=== PATIENT | female | born 1945 | race Caucasian/White ===

== ENCOUNTER → 2020-01-22 | Outpatient (CLI) | payer OTHER | END | disposition home or self-care (01) | LOC: SHCH 13:24 | PROVIDERS: ATTEND Internal Medicine Cardiovascular Disease | DX: R01.1 Cardiac murmur, unspecified (principal) | CPT/HCPCS: 93306 ==

== ENCOUNTER 2020-03-24 14:36 | Inpatient (IN) | payer OTHER ==
[~2020-03-24] VITALS: Ht 167.6 cm; Wt 84.8 kg
[2020-03-24 15:43] LABS: BASOPHILS % (AUTO) 0.3 % (0.0-5.0); EOSINOPHILS % (AUTO) 1.7 % (0.0-8.0); HEMATOCRIT 33.3 % (36-48); LYMPHOCYTES % (AUTO) 8.3 % (21.0-51.0); MEAN CORPUSCULAR HGB CONC 32.4 g/dL (32.0-36.0); MEAN CORPUSCULAR VOLUME 98.8 fL (79-99); MONOCYTES % (AUTO) 6.5 % (3.0-13.0); NEUTROPHILS % (AUTO) 82.8 % (40.0-77.0); PLATELET COUNT (AUTO) 148 K/uL (130-400); RED BLOOD CELL COUNT(AUTO) 3.37 MIL/uL (4.00-5.50); RED CELL DISTRIBUTION WIDTH 11.6 % (11.0-15.5); WHITE BLOOD COUNT (AUTO) 7.2 K/uL (4.8-10.8)
[2020-03-24 15:47] LABS: CREATININE 0.9 mg/dL (0.5-1.5); POTASSIUM 3.8 mmol/L (3.5-5.1)
[2020-03-24 15:50] LABS: INR 0.94 (0.85-1.15); PARTIAL THROMBOPLASTIN TIME 27.8 SEC (26.3-35.5); PROTHROMBIN TIME 10.2 SEC (9.6-11.6)
[2020-03-24 15:52] LABS: ALBUMIN 3.2 g/dL (3.5-5.0); BILIRUBIN,TOTAL 0.8 mg/dL (0.2-1.0); TOTAL PROTEIN, SERUM 6.3 g/dL (6.0-8.3)
[2020-03-24] MEDS ORDERED: NITROGLYCERIN 0.4 MG SL TAB SL PRN (17:15)
[2020-03-24] MEDS ORDERED: ACETAMINOPHEN 325 MG TAB PO PRN (17:15)
[2020-03-24] MEDS ORDERED: CLONIDINE HCL 0.1 MG TABLET PO PRN (17:15)
[2020-03-24] MEDS ORDERED: POTASSIUM CHLORIDE 10% ELIXIR 20 MEQ/15 ML UDCUP PO PRN (17:15)
[2020-03-24] MEDS ORDERED: LACTULOSE 20 GM/30 ML UDCUP PO PRN (17:15)
[2020-03-24] MEDS ORDERED: DiphenhydrAMINE HCL 50 MG/ML VIAL IVP PRN (17:15)
[2020-03-24] MEDS ORDERED: ONDANSETRON HCL 4 MG/2 ML VIAL IVP PRN (17:15)
[2020-03-24] MEDS ORDERED: DEXTROSE 50%-WATER 50 ML DISP.SYRIN IV PRN (17:15)
[2020-03-24] MEDS ORDERED: POTASSIUM CHLORIDE 20MEQ/100ML 100 ML IV PRN (17:15)
[2020-03-24] MEDS ORDERED: GLUCAGON 1MG KIT 1 MG ML IM PRN (17:15)
[2020-03-24] MEDS ORDERED: LIDOCAINE HCL-MPF 1% 2ML VIAL IJ PRN (17:15)
[2020-03-24] MEDS ORDERED: MAG HYDROX/AL HYDROX/SIMETH ES 30 ML SUSP UDCUP PO PRN (17:15)
[2020-03-24] MEDS ORDERED: GUAIFENESIN-DM 200/20 MG 10 ML PO PRN (17:15)
[2020-03-24] MEDS ORDERED: ZOLPIDEM TARTRATE 5 MG TAB PO PRN (17:15)
[2020-03-24] MEDS ORDERED: SODIUM CHLORIDE 0.9% 10 ML VIAL IVP SCH (17:15)
[2020-03-24 20:44] LABS: APPEARANCE,URINE Cloudy (CLEAR); BILIRUBIN,URINE Negative (NEGATIVE); COLOR,URINE Dark Yellow (YELLOW); GLUCOSE, URINE (UA) Negative (NEGATIVE); KETONES,URINE Trace mg/dL (NEGATIVE); LEUKOCYTE ESTERASE ,URINE Negative (NEGATIVE); NITRATE,URINE Negative (NEGATIVE); OCCULT BLOOD,URINE Negative (NEGATIVE); PROTEIN,URINE POS 1+ mg/dL (NEGATIVE)
[2020-03-24 20:51] LABS: BACTERIA,URINE Few /HPF (None Seen); MUCUS,URINE Few LPF (None Seen); RBC,URINE 0-1 /HPF (0-1); SQUAMOUS EPITHELIAL CELL,UR Few /HPF (0-2)
[2020-03-24] MEDS: INSULIN R PO SSI SQ SCH (21:00)
--- NOTE | 2020-03-24 21:30 | NUR ---
ADMISSION PATIENT TRANSFERRED FROM ER INTO ROOM 315, AWAKE, ALERT AND VERBALLY RESPONSIVE. C/O PAIN 8/10 TO LEFT HIP UPON TRANSFERRING FROM STRETCHER TO BED (REFER TO eMAR FOR MEDICATION ADMINISTRATION). ASSISTED PATIENT INTO A COMFORTABLE POSITION, ORIENTED TO ROOM, CALL LANDEROS WITHIN REACH, BED IN LOWEST POSITION. Addendum: 03/24/20 at 2349 by JENNIFER DAVENPORT RN Amended: Links added.
[2020-03-24 21:35] VITALS: BP 150/75
[2020-03-24] MEDS: ACETAMINOPHEN 325 MG TAB PO PRN (22:14)
--- NOTE | 2020-03-24 22:30 | NUR ---
ORTHO CONSULT SPOKE TO DR. ETIENNE AT THIS TIME, RECEIVED NEW ORDERS FOR PAIN MEDICATION (REFER TO EMR). STATED WILL COME SEE PATIENT IN THE MORNING IN REGARDS TO POSSIBLE SURGERY ORDERS.
[2020-03-24] MEDS ORDERED: CARV12.511 PO (22:46)
[2020-03-24] MEDS ORDERED: PARO-37 PO (22:46)
[2020-03-24] MEDS ORDERED: ENAL5TAB17 PO (22:46)
[2020-03-24] MEDS ORDERED: ATOR40TA69 PO (22:46)
[2020-03-24] MEDS ORDERED: AMIO200T6 PO (22:46)
[2020-03-24] MEDS ORDERED: ISOS30TA6 PO (22:46)
[2020-03-24] MEDS ORDERED: MORPHINE SULFATE 4 MG/1ML SYG ONE (22:54)
[2020-03-24 23:45] VITALS: BP 144/74
[2020-03-25 03:35] VITALS: BP 136/68
[2020-03-25] MEDS: INSULIN R PO SSI SQ SCH ×4 (06:52→21:00)
--- NOTE | 2020-03-25 07:30 | NUR ---
MD PAM CHICAS IN PATIENT ROOM, INFORMED PATIENT OF PLAN OF CARE. EXPLAINED TO PATIENT POSSIBLE SURGERY AND THE NEED FOR CARDIOLOGY CLEARANCE DUE TO CARDIAC PAST MEDICAL HISTORY. PATIENT VERBALIZED UNDERSTANDING, ALL QUESTIONS WERE ANSWERED AND EXPLAINED. Addendum: 03/25/20 at 0756 by JENNIFER DAVENPORT RN Amended: Links added.
[2020-03-25 08:00] VITALS: BP 125/74
[2020-03-25] MEDS: MORPHINE SULFATE 4 MG/1ML SYG IV PRN (08:30)
--- NOTE | 2020-03-25 09:20 | NUR ---
DR. XIONG PAGED DR. ETIENNE REQUESTING MED CLEARANCE. PENDING CALL BACK.
[2020-03-25] MEDS: HYDROCODONE/ACETAMINOPHEN 5/325 MG TAB PO PRN (10:50)
[2020-03-25 11:00] VITALS: BP 139/58
[2020-03-25] MEDS: FUROSEMIDE 20 MG TABLET PO SCH ×2 (12:37→23:00)
[2020-03-25] MEDS: CARVEDILOL 12.5 MG TABLET PO SCH ×2 (12:37→21:00)
[2020-03-25] MEDS: ISOSORBIDE MONO 30MG TAB SR PO SCH (12:37)
[2020-03-25] MEDS: ATORVASTATIN CALCIUM 40 MG TABLET PO SCH (12:37)
[2020-03-25] MEDS: ASPIRIN 81MG TAB.CHEW PO SCH (12:38)
[2020-03-25] MEDS: AMIODARONE HCL 200 MG TABLET PO SCH (12:38)
--- NOTE | 2020-03-25 12:45 | NUR ---
DCP CM met with pt discussed dc plans. Pt is semi-independent prior to admission, lives at home w/spouse. Pt has a walker, shower chair, cane, pacemaker defibrillator. Denies any other equipments/services. Feels safe to go back home, still drives, spouse able to assist with transportation and needs as necessary. Pt agreeable for short term placement rehab if necessary, JUSTIN consent signed for Dieter Ryan, filed in chart under [facility] tab. Informed pt will wait for MD recommendations and PT. Pt currently pending cardiac clearance and possible surgery w/Dr Brenner. DC plan to home vs SNF. CM to cont to follow up. Addendum: 03/25/20 at 1248 by CHITRA MESSINA LVN CM Amended: Links added.
[2020-03-25 16:00] VITALS: BP 104/58
--- NOTE | 2020-03-25 16:20 | NUR ---
DR. XIONG PAGED PENDING CALL BACK.
[2020-03-25 19:43] VITALS: BP 104/47
[2020-03-25 23:42] VITALS: BP 110/61
[2020-03-26] VITALS (23 sets, daily range): BP systolic 98–139; BP diastolic 43–68
[2020-03-26] MEDS: INSULIN R PO SSI SQ SCH ×4 (07:30→21:00)
[2020-03-26] MEDS: CARVEDILOL 12.5 MG TABLET PO SCH ×2 (08:41→21:41)
[2020-03-26] MEDS: AMIODARONE HCL 200 MG TABLET PO SCH (08:41)
[2020-03-26] MEDS: MORPHINE SULFATE 4 MG/1ML SYG IV PRN (08:43)
[2020-03-26] MEDS: ATORVASTATIN CALCIUM 40 MG TABLET PO SCH (08:43)
[2020-03-26] MEDS: ASPIRIN 81MG TAB.CHEW PO SCH (08:43)
[2020-03-26] MEDS: ISOSORBIDE MONO 30MG TAB SR PO SCH (11:15)
[2020-03-26] MEDS ORDERED: MIDAZOLAM HCL 1 MG/ML 2ML VIAL ONE (13:14)
[2020-03-26] MEDS ORDERED: LIDOCAINE PF 2% 5ML ABBOJECT ONE (13:14)
[2020-03-26] MEDS ORDERED: ROCURONIUM 10MG/1ML SYR 10 MG/ML ML ONE ×2 (13:14→13:17)
[2020-03-26] MEDS ORDERED: ONDANSETRON HCL 4 MG/2 ML VIAL ONE (13:14)
[2020-03-26] MEDS ORDERED: SUCCINYLCHOLINE CHLORIDE 20 MG/ML 10 ML VIAL ONE (13:14)
[2020-03-26] MEDS ORDERED: PROPOFOL 10 MG/ML 20ML VIAL IV ONE (13:14)
[2020-03-26] MEDS ORDERED: FENTANYL CITRATE PF 50 MCG/1 ML 2ML VIAL ONE (13:15)
--- NOTE | 2020-03-26 13:45 | NUR ---
NOTE PATIENT OUT OF ROOM FOR SURGERY AT THIS TIME. STABLE UPON LEAVING. NO DISTRESS OR SOB. INFORMED PATIENT'S ABOUT HER LEAVING FOR HE WAS UPSET WHEN HE CALLED EARLIER ABOUT NOT HAVING SURGERY AT 7:30 AM LIKE THEY HAD TOLD HIM YESTERDAY.
[2020-03-26] MEDS ORDERED: CEFAZOLIN SODIUM 1 GM VIAL ONE (13:54)
[2020-03-26 14:05] LABS: HEMATOCRIT 34.5 % (36-48); MEAN CORPUSCULAR HEMOGLOBIN 32.5 pg (27.0-33.0); MEAN CORPUSCULAR HGB CONC 32.2 g/dL (32.0-36.0); MEAN CORPUSCULAR VOLUME 100.9 fL (79-99); RED BLOOD CELL COUNT(AUTO) 3.42 MIL/uL (4.00-5.50); RED CELL DISTRIBUTION WIDTH 11.2 % (11.0-15.5); WHITE BLOOD COUNT (AUTO) 6.6 K/uL (4.8-10.8)
[2020-03-26] MEDS ORDERED: EPHEDRINE SULFATE 50 MG/ML AMPULE ONE (14:13)
[2020-03-26 14:15] LABS: POTASSIUM 4.3 mmol/L (3.5-5.1)
[2020-03-26] MEDS ORDERED: GLYCOPYRROLATE 1 MG/5 ML SYRINGE ONE (15:43)
[2020-03-26] MEDS ORDERED: NEOSTIGMINE 5MG/5ML SYR IV ONE (15:43)
[2020-03-26] MEDS ORDERED: SUGAMMADEX SODIUM 200 MG/2 ML VIAL IV ONE (16:04)
--- NOTE | 2020-03-26 18:30 | NUR ---
NOTE CAME BACK FROM SURGERY EARLIER. STABLE UPON RETURN. DRESSING TO LEFT HIP D/I. WILL LEAVE ON O2@2LNC FOR NOW. VERBALIZED NOT HAVING MUCH DISCOMFORT OR PAIN ASN PREVIOUS TO SURGERY.
[2020-03-26] MEDS: FUROSEMIDE 20 MG TABLET PO SCH (18:45)
[2020-03-26] MEDS: CEFAZOLIN SODIUM 1 GM VIAL IVP SCH (21:38)
[2020-03-27] MEDS: HYDROCODONE/ACETAMINOPHEN 5/325 MG TAB PO PRN ×2 (01:35→21:21)
[2020-03-27 03:00] VITALS: BP 107/49
[2020-03-27] MEDS: FUROSEMIDE 20 MG TABLET PO SCH ×2 (04:21→18:48)
[2020-03-27] MEDS: CEFAZOLIN SODIUM 1 GM VIAL IVP SCH (04:21)
[2020-03-27] MEDS: INSULIN R PO SSI SQ SCH ×4 (05:33→21:00)
[2020-03-27 07:34] VITALS: BP 101/56
[2020-03-27] MEDS: ATORVASTATIN CALCIUM 40 MG TABLET PO SCH (08:35)
[2020-03-27] MEDS: ASPIRIN 81MG TAB.CHEW PO SCH (08:35)
[2020-03-27] MEDS: AMIODARONE HCL 200 MG TABLET PO SCH (08:35)
[2020-03-27] MEDS: CARVEDILOL 12.5 MG TABLET PO SCH ×2 (08:36→21:21)
[2020-03-27 11:27] VITALS: BP 102/52
--- NOTE | 2020-03-27 13:30 | NUR ---
DR. JOHNSON HERE , REVIEW CARE, WITH PT.AND ORTHO DR ORDERS . CONT WITH CARE.
[2020-03-27] MEDS: KETOROLAC TROMETHAMINE 15MG/ML IV PRN (13:41)
--- NOTE | 2020-03-27 13:50 | NUR ---
P.T. THERAPY HERE OUT OF BED , TO CHAIR . TOERATE WELL. CALL LIGHT IN REACH
[2020-03-27 16:00] VITALS: BP 95/54
[2020-03-27 20:45] VITALS: BP 116/52
--- NOTE | 2020-03-27 21:25 | NUR ---
MEDS SHIFT ASSESSMENT DONE, PLEASE REFER TO CHART. PT CLAIMS OF LEFT HIP PAINS. DUE MEDS ADMINISTERED, TOLERATED WELL. KEPT RESTED AND COMFORTABLE. WILL RE-ASSESS PT. Addendum: 03/28/20 at 0352 by RIAT FANG RN RN Amended: Links added.
[2020-03-28 00:30] VITALS: BP 101/56
--- NOTE | 2020-03-28 02:00 | NUR ---
ROUNDS PT RESTING WELL, FAIRLY ASLEEP WITH RESPIRATIONS EVEN AND UNLABORED. NO NOTED DISTRESS. KEPT UNDISTURBED FOR NOW. WILL MONITOR PT. CALL LIGHT WITHIN REACH.
--- NOTE | 2020-03-28 03:40 | NUR ---
DRESSING PCP IN TO CHECK V/S, STABLE. NOTED BLOOD STAIN ON PT'S GOWN. WOUND DRESSING STAINED BUT NO NOTED ACTIVE BLEED. RE-ENFORCED DRESSING AT THIS TIME. PT CLAIMS OF SX PAINS WITH MOVEMENT BUT REFUSED PAIN MEDS. COLD PACK APPLIED TO LEFT HIP SX WOUND. CHANGED SOILED GOWN. RE-POSITIONED IN BED COMFORTABLY WITH HOB ELEVATED. WILL MONITOR PT.
[2020-03-28 03:42] VITALS: BP 99/50
[2020-03-28 04:47] LABS: BASOPHILS % (AUTO) 0.3 % (0.0-5.0); EOSINOPHILS % (AUTO) 1.4 % (0.0-8.0); HEMATOCRIT 31.9 % (36-48); LYMPHOCYTES % (AUTO) 9.5 % (21.0-51.0); MEAN CORPUSCULAR HEMOGLOBIN 32.5 pg (27.0-33.0); MEAN CORPUSCULAR HGB CONC 33.5 g/dL (32.0-36.0); MONOCYTES % (AUTO) 10.3 % (3.0-13.0); NEUTROPHILS % (AUTO) 78.1 % (40.0-77.0); PLATELET COUNT (AUTO) 148 K/uL (130-400); RED BLOOD CELL COUNT(AUTO) 3.29 MIL/uL (4.00-5.50); RED CELL DISTRIBUTION WIDTH 10.9 % (11.0-15.5)
[2020-03-28 05:03] LABS: ALBUMIN 2.8 g/dL (3.5-5.0); BILIRUBIN,TOTAL 0.7 mg/dL (0.2-1.0); POTASSIUM 3.2 mmol/L (3.5-5.1); TOTAL PROTEIN, SERUM 6.4 g/dL (6.0-8.3)
[2020-03-28] MEDS: FUROSEMIDE 20 MG TABLET PO SCH ×2 (05:21→18:25)
--- NOTE | 2020-03-28 05:21 | NUR ---
MEDS AWAKENED PT FOR DUE MEDS, STARTED PT ON PO POTASSIUM PER PROTOCOL. PT TOLERATED MEDS WELL. FOR MORE CARE.
[2020-03-28] MEDS: POTASSIUM CHLORIDE 20 MEQ ERTAB PO PRN ×4 (05:22→18:26)
[2020-03-28] MEDS: INSULIN R PO SSI SQ SCH ×4 (05:49→20:18)
[2020-03-28 08:00] VITALS: BP 127/67
[2020-03-28] MEDS: AMIODARONE HCL 200 MG TABLET PO SCH (08:34)
[2020-03-28] MEDS: ISOSORBIDE MONO 30MG TAB SR PO SCH (08:34)
[2020-03-28] MEDS: ATORVASTATIN CALCIUM 40 MG TABLET PO SCH (08:34)
[2020-03-28] MEDS: ASPIRIN 81MG TAB.CHEW PO SCH (08:35)
[2020-03-28] MEDS: CARVEDILOL 12.5 MG TABLET PO SCH ×2 (08:35→19:24)
[2020-03-28] MEDS: KETOROLAC TROMETHAMINE 15MG/ML IV PRN ×2 (08:40→18:35)
--- NOTE | 2020-03-28 10:40 | NUR ---
P.T. HERE AND ASSIT UP TO THE CHAIR. PT WAS ABLE TO SUPPORT HERSELF . FAIR, REVIEW , CALL LIGHT IN REACH..
[2020-03-28 12:00] VITALS: BP 103/60
--- NOTE | 2020-03-28 15:50 | NUR ---
LEFT HIP. DRSG CHANGED, DUE TO IT FALLING OFF FROM HER LEFT HIP . AREA. GUERO NOTED IN PLACE, WITH NO REDNESSS OR OOZING NOTED, CLEANSE WITH THE SALINE, FOLLOW WITH THE YELLOW XEROFORM . PETROLATUM DRSG AND SECURE , WITH STERILE GAUZE, AND SECURE WITH THE MEDI TAPE. TOLERATE WELL.
--- NOTE | 2020-03-28 16:58 | NUR ---
CM NOTE/DCP PLANNING MEET WITH PATIENT IN ROOM TO DISCUSS DISCHARGE PLANNING. PER PATIENT, WANTS TO GO TO [facility] IF NEEDED. DR. XIONG CALLED, PER MD, PATIENT MAY GO HOME BUT OK WITH SNF IF PATIENT CHOOSES. PER PATIENT, INTERESTED IN [facility] BUT NEEDS TO DISCUSS WITH FAMILY BEFORE GIVING ME A DECISION. CM TO FOLLOW UP.
[2020-03-28 17:29] VITALS: BP 112/60
[2020-03-28] MEDS ORDERED: LORAZEPAM 2 MG/ML 1 ML VIAL IVP PRN (18:45)
[2020-03-28 19:00] VITALS: BP 105/55
[2020-03-28] MEDS: MORPHINE SULFATE 4 MG/1ML SYG IV PRN (19:25)
--- NOTE | 2020-03-28 19:25 | NUR ---
PAIN SHIFT ASSESSMENT DONE, PLEASE REFER TO CHART. PT COMPLAINTS OF PAIN TO LEFT HIP SX SITE. PT STATED THAT THE PAIN MED GIVEN EARLIER BY AM NURSE DID NOT HELP. FURTHER CLAIMS THAT SHE WAS UNABLE TO HAVE ANY BM YET. MEDICATED WITH MORPHINE IV. PRUNE JUICE GIVEN TO PT. CALL LIGHT WITHIN REACH. WILL RE-ASSESS PT. Addendum: 03/29/20 at 0222 by RITA FANG RN RN Amended: Links added.
--- NOTE | 2020-03-28 21:15 | NUR ---
REPORT REPORT GIVEN TO BOBBY STEELE. FOR MORE CARE AND MANAGEMENT.
[2020-03-28] MEDS: TRAZODONE HCL 50 MG TAB PO SCH (23:14)
[2020-03-29] VITALS: BP 105/66
[2020-03-29] MEDS: MORPHINE SULFATE 4 MG/1ML SYG IV PRN ×2 (01:16→14:58)
[2020-03-29 04:00] VITALS: BP 105/54
[2020-03-29] MEDS: FUROSEMIDE 20 MG TABLET PO SCH ×2 (05:18→18:34)
[2020-03-29] MEDS: INSULIN R PO SSI SQ SCH ×4 (07:30→21:00)
[2020-03-29 08:00] VITALS: BP 109/56
[2020-03-29] MEDS: ASPIRIN 81MG TAB.CHEW PO SCH (08:54)
[2020-03-29] MEDS: ATORVASTATIN CALCIUM 40 MG TABLET PO SCH (08:54)
[2020-03-29] MEDS: AMIODARONE HCL 200 MG TABLET PO SCH (08:54)
[2020-03-29] MEDS: ISOSORBIDE MONO 30MG TAB SR PO SCH (08:55)
[2020-03-29] MEDS: CARVEDILOL 12.5 MG TABLET PO SCH ×2 (08:55→21:01)
--- NOTE | 2020-03-29 10:42 | NUR ---
CONTACTED TO CLARIFY ORDER FOR SNF & ORDER TO REMOVE YUSEF WAITING ON TEXT BACK Addendum: 03/29/20 at 1043 by SARA ONEILL RN CM Amended: Links added.
[2020-03-29] MEDS: KETOROLAC TROMETHAMINE 15MG/ML IV PRN (10:51)
[2020-03-29 12:00] VITALS: BP 95/53
--- NOTE | 2020-03-29 15:30 | NUR ---
[facility] CONDITIONALLY ACCEPTED PATIENT, WAITING ON COVID FORM AND AUTH FROM [employer]
[2020-03-29 16:00] VITALS: BP 91/54
--- NOTE | 2020-03-29 18:11 | NUR ---
REFERRAL TO SNF ON HOLD. DR. ARIZMENDI WANTING TO TALK TO FAMILY AT BEDSIDE IN AM, DISCUSSION WITH DR. ARIZMENDI- THERAPY FOR SHORT TERM PLACEMENT, TRANSITION TO HOSPICE VS HOME WITH HOSPICE DIRECTLY. FAMILY CONFERENCE FOR 1 PM TOMORROW. [facility]. AGREE TO HAVE FMAILY- SPOUSE AND 3 CHILDREN- UP FOR CONFERENCE AT BEDSIDE. EITHER HOME IWTH HOSPICE DIRECTLU OR TO FACILITY FOR SHORT TERM HYDRATION/ ABX/ THERAPY AND THEN TRANSITION. WILL FOLLOW UP IN AM Addendum: 03/29/20 at 1816 by SARA ONEILL RN WRONG PATIENT
--- NOTE | 2020-03-29 18:15 | NUR ---
NOTE AT 1811 ON WRONG PT. PLEASE DISREGARD
[2020-03-29 19:00] VITALS: BP 115/55
[2020-03-29] MEDS: TRAZODONE HCL 50 MG TAB PO SCH (20:56)
[2020-03-29] MEDS: DIPHENHYDRAMINE HCL 25 MG CAPSULE PO PRN (21:01)
[2020-03-30 00:44] VITALS: BP 109/59
[2020-03-30 04:00] VITALS: BP_SYST 103; BP_SYST 108; BP_DIAS 52; BP_DIAS 55
[2020-03-30] MEDS: FUROSEMIDE 20 MG TABLET PO SCH (05:29)
--- NOTE | 2020-03-30 05:30 | NUR ---
Patient's dressing soiled serosanginous, removed old dressing and cleansed site with sterile normal saline and sterile gauzes. Patted area dry with sterile dressings applied Xeroform gauze, and sterile 4x4, then ABD, secured with medipore tape. Patient tolerated procedure fair. I explained to patient I would be discontinueing her F/C at this time. Patient had requested stay in during the night, to be able to sleep. Patient verbalized understanding. Deflatted f/c balloon of 8 mls of clear fluid, then asked patient to take a deep breath at the count of 3, then and patient tolerated procedure well. Informed patient she would be due to void in 6 hours, verbalized understanding.
[2020-03-30] MEDS: ACETAMINOPHEN 325 MG TAB PO PRN (05:36)
[2020-03-30] MEDS: DIPHENHYDRAMINE HCL 25 MG CAPSULE PO PRN (06:43)
[2020-03-30] MEDS: MORPHINE SULFATE 4 MG/1ML SYG IV PRN (06:47)
[2020-03-30] MEDS: INSULIN R PO SSI SQ SCH ×2 (06:57→10:58)
[2020-03-30 08:02] VITALS: BP 115/40
[2020-03-30] MEDS: CARVEDILOL 12.5 MG TABLET PO SCH (08:47)
[2020-03-30] MEDS: AMIODARONE HCL 200 MG TABLET PO SCH (08:52)
[2020-03-30] MEDS: ASPIRIN 81MG TAB.CHEW PO SCH (08:52)
[2020-03-30] MEDS: ATORVASTATIN CALCIUM 40 MG TABLET PO SCH (08:53)
[2020-03-30] MEDS: ISOSORBIDE MONO 30MG TAB SR PO SCH (08:53)
[2020-03-30 11:30] VITALS: BP 105/52
--- NOTE | 2020-03-30 15:00 | NUR ---
DISCHARGE TO [facility]
== END 2020-03-30 15:55 | DRG 470 ==
LOC: EDH 14:36 → EDHIP 16:28 → 3CH 20:58
PROVIDERS: ADMIT Family Medicine; ATTEND Family Medicine
PROC: 0SRS0J9 Replacement of Left Hip Joint, Femoral Surface with Synthetic Substitute, Cemented, Open Approach (ICD-10-PCS; principal; 2020-03-26 07:30)
PROC: 3E0T3BZ Introduction of Anesthetic Agent into Peripheral Nerves and Plexi, Percutaneous Approach (ICD-10-PCS; 2020-03-26 07:30)
DX: S72.092A Other fracture of head and neck of left femur, initial encounter for closed fracture (principal); I50.22 Chronic systolic (congestive) heart failure; I13.0 Hypertensive heart and chronic kidney disease with heart failure and stage 1 through stage 4 chronic kidney disease, or unspecified chronic kidney disease; I25.5 Ischemic cardiomyopathy; I48.0 Paroxysmal atrial fibrillation; E78.5 Hyperlipidemia, unspecified; I25.10 Atherosclerotic heart disease of native coronary artery without angina pectoris; G89.29 Other chronic pain; M54.9 Dorsalgia, unspecified; N18.9 Chronic kidney disease, unspecified; W01.0XXA Fall on same level from slipping, tripping and stumbling without subsequent striking against object, initial encounter; Y93.89 Activity, other specified; Y92.89 Other specified places as the place of occurrence of the external cause; Y99.8 Other external cause status; I25.2 Old myocardial infarction; Z95.5 Presence of coronary angioplasty implant and graft; Z82.49 Family history of ischemic heart disease and other diseases of the circulatory system; Z83.3 Family history of diabetes mellitus
CPT/HCPCS: 36415; 71045; 73502; 80048; 80053; 81001; 82948; 83880; 84132; 84484; 85025; 85027; 85610; 85730; 86850; 86900; 86901; 93005; 97039; A4344; C1776; G0378; J0330; J0690; J1885; J2001; J2250; J2270; J2405; J2704; J2710; J3010; J3490; J7120; Q0163

== ENCOUNTER 2022-03-16 13:40 | Emergency (ER) | payer MEDICARE ==
[~2022-03-16] VITALS: Ht 167.6 cm; Wt 79.4 kg
[~2022-03-16 13:40] MED LIST: AMIO200T68 PO; ATOR40TA69 PO; CARV12.511 PO; ENAL5TAB17 PO; ISOS30TA92 PO; PARO-37 PO
[2022-03-16 14:06] LABS: APPEARANCE,URINE SL CLOUDY (CLEAR); BILIRUBIN,URINE NEGATIVE (NEGATIVE); COLOR,URINE YELLOW (YELLOW); GLUCOSE, URINE (UA) NEGATIVE (NEGATIVE); KETONES,URINE NEGATIVE (NEGATIVE); LEUKOCYTE ESTERASE ,URINE LARGE (NEGATIVE); NITRATE,URINE NEGATIVE (NEGATIVE); OCCULT BLOOD,URINE SMALL (NEGATIVE); PH,URINE 5.5 (5.0-8.0); PROTEIN,URINE TRACE mg/dL (NEGATIVE); UROBILINOGEN,URINE 0.2 mg/dL (0.2-1.0)
[2022-03-16 14:11] VITALS: BP 124/73
[2022-03-16] MEDS ORDERED: PHEN-847 PO (14:14)
[2022-03-16] MEDS ORDERED: CEPH500B PO (14:14)
[2022-03-16 14:16] LABS: BACTERIA,URINE Few /HPF (None Seen); WBC,URINE 26-50 /HPF (0-1)
[2022-03-16 14:17] LABS: RBC,URINE 0-1 /HPF (0-1)
[2022-03-16] MEDS ORDERED: LIDOCAINE HCL-MPF 1% 2ML VIAL IV SCH (14:30)
[2022-03-16] MEDS ORDERED: CEFTRIAXONE 1G VIAL IM SCH (14:30)
[2022-03-16] MEDS ORDERED: PHENAZOPYRIDINE HCL 200 MG TABLET PO SCH (14:30)
== END 2022-03-16 14:36 | disposition home or self-care (01) ==
LOC: EDH 13:40
DX: N39.0 Urinary tract infection, site not specified (principal); R30.0 Dysuria; M19.90 Unspecified osteoarthritis, unspecified site; E78.00 Pure hypercholesterolemia, unspecified; I25.2 Old myocardial infarction; Z98.890 Other specified postprocedural states; Z79.899 Other long term (current) drug therapy
CPT/HCPCS: 81001; 87088; 96372; 99283; J0696; J3490